=== PATIENT | female | born 1950 | race Caucasian/White ===

== ENCOUNTER 2017-11-16 06:00 | Day surgery (SDC) | payer OTHER ==
[~2017-11-16] VITALS: Ht 162.6 cm; Wt 89.4 kg
[~2017-11-16 06:00] MED LIST: NORVASC5 MG PO; SIMVASTATIN20 MG PO; TOPROL XL25 MG PO
== END 2017-11-17 12:11 | disposition home or self-care (01) ==
LOC: CIR.AMB 06:00 → SURH 09:30 → EDSTATUS 09:30 → O/R 13:12 → SURH 13:12 → CIR.AMB 11-17 12:11 → SURH 11-17 13:37
DX: C50.411 Malignant neoplasm of upper-outer quadrant of right female breast (principal); I10 Essential (primary) hypertension